=== PATIENT | female | born 1995 | race African-American/Black ===

== ENCOUNTER 2017-03-24 19:04 | Emergency (ER) | payer MEDICAID ==
[2017-03-24] MEDS ORDERED: SULFAMETHOXAZOLE/TRIMETHOPRIM 800-160 MG TABLET PO ONE (21:40)
[2017-03-24] MEDS ORDERED: HYDROCODONE/ACETAMINOPHEN 5-325 MG 6 TAB/DSPK PO PRN (21:41)
--- NOTE | 2017-03-24 21:45 | ER Document Report ---
ED General - General Chief Complaint: Possible abscess under both arms Stated Complaint: SWOLLEN UNDERARMS Time Seen by Provider: 03/24/17 20:31 Notes: Patient is a 21-year-old female with a past medical history of hidradenitis who presents with bilateral swelling and tenderness. States this feels similar to when she is developed abscesses in the axilla in the past. She has been told that she needs to have surgical removal of her sweat glands. Does note a dull, constant, aching pain to the affected area. Nothing improves or worsens her pain. She denies any fever or constitutional symptoms. She has not seen her primary doctor regarding today's concerns. TRAVEL OUTSIDE OF THE [place] IN LAST 30 DAYS: No - Related Data Allergies/Adverse Reactions: No Known Allergies Allergy (Unverified 03/24/17 19:29) Past Medical History - General Information source: Patient - Social History Smoking Status: Current Every Day Smoker Chew tobacco use (# tins/day): No Frequency of alcohol use: None Drug Abuse: None Lives with: Family Family History: Reviewed & Not Pertinent Pulmonary Medical History: Reports: Hx Asthma Renal/ Medical History: Denies: Hx Peritoneal Dialysis Review of Systems - Review of Systems Notes: Constitutional: Negative for fever. HENT: Negative for sore throat. Eyes: Negative for visual changes. Cardiovascular: Negative for chest pain. Respiratory: Negative for shortness of breath. Gastrointestinal: Negative for abdominal pain, vomiting or diarrhea. Genitourinary: Negative for dysuria. Musculoskeletal: Negative for back pain. Skin: Positive for bilateral axillary swelling Neurological: Negative for headaches, weakness or numbness. 10 point ROS negative except as marked above and in HPI. Physical Exam - Vital signs Vitals: Temp Pulse Resp BP Pulse Ox 98.6 F 98 16 123/54 L 99 03/24/17 19:28 03/24/17 19:28 03/24/17 19:28 03/24/17 19:28 03/24/17 19:28 Interpretation: Normal Notes: PHYSICAL EXAMINATION: GENERAL: Well-appearing, well-nourished and in no acute distress. HEAD: Atraumatic, normocephalic. EYES: Pupils equal round and reactive to light, extraocular movements intact, sclera anicteric, conjunctiva are normal. ENT: nares patent, oropharynx clear without exudates. Moist mucous membranes. NECK: Normal range of motion, supple without lymphadenopathy LUNGS: Breath sounds clear to auscultation bilaterally and equal. No wheezes rales or rhonchi. HEART: Regular rate and rhythm without murmurs ABDOMEN: Soft, nontender, normoactive bowel sounds. No guarding, no rebound. No masses appreciated. EXTREMITIES: Normal range of motion, no pitting or edema. No cyanosis. NEUROLOGICAL: No focal neurological deficits. Moves all extremities spontaneously and on command. PSYCH: Normal mood, normal affect. SKIN: Warm, Dry, normal turgor, bilateral axillary abscesses. Course - Re-evaluation Re-evalutation: 03/24/17 21:41 Patient with a history of hidradenitis presents with bilateral axillary swelling and associated abscesses with a history of recurrent presentations of this manner. She is otherwise well in appearance, vitals within normal limits, not toxic or septic in appearance. Patient is declining repeat incision and drainages stating that she has had these repeatedly in the past and they have not helped. She expresses an understanding that without incision and drainages , antibiotics alone are unlikely to be successful treatment of these areas but states she would rather follow-up as an outpatient with a surgeon for definitive management for removal of the sweat glands. Will start on TMP-SMX provide a limited number of pain medications and provide a outpatient surgical referral. At this time will discharge with return precautions and follow-up recommendations. Verbal discharge instructions given a the bedside and opportunity for questions given. Medication warnings reviewed. Patient is in agreement with this plan and has verbalized understanding of return precautions and the need for primary care follow-up in the next 24-72 hours. - Vital Signs Vital signs: Temp Pulse Resp BP Pulse Ox 98.3 F 62 16 121/65 100 03/24/17 22:03 03/24/17 22:03 03/24/17 22:03 03/24/17 22:03 03/24/17 22:03 Discharge - Discharge Clinical Impression: Hidradenitis, Cutaneous abscesses of both axillae Condition: Good Disposition: HOME, SELF-CARE Additional Instructions: Please clean this area with soap and water twice daily and apply a topical antibiotic. Dress the area after each cleaning. Please return if you develop fever, vomiting, the pain at the site worsens, you notice spreading redness from the area, or you have any other symptoms that are concerning to you. Take antibiotics as prescribed and follow-up with the surgeon at your earliest ability. Prescriptions: Sulfamethoxazole/Trimethoprim [Bactrim Ds Tablet] 2 tab PO BID #20 tablet Referrals: EMILIA RAGLAND MD [ACTIVE STAFF] - Follow up as needed
[2017-03-24 22:13] VITALS: BP 121/65
== END 2017-03-24 22:14 | disposition home or self-care (01) ==
LOC: ER 19:04
DX: L73.2 Hidradenitis suppurativa (principal); L02.412 Cutaneous abscess of left axilla; L02.411 Cutaneous abscess of right axilla; F17.200 Nicotine dependence, unspecified, uncomplicated; J45.909 Unspecified asthma, uncomplicated
CPT/HCPCS: 99282; J3490

== ENCOUNTER 2017-04-20 21:16 | Emergency (ER) | payer MEDICAID ==
[2017-04-20 22:15] VITALS: BP 135/66
--- NOTE | 2017-04-20 22:46 | ER Document Report ---
HPI - HPI Patient complains to provider of: Anxiety Onset: Other - Week and a half Onset/Duration: Intermittent, Persistent Pain Level: Denies Context: 21-year-old female with a history of bipolar normally takes Latuda 80 mg at night and 40 mg in the morning but she has been out of medication for a week and a half. During that time she has episodes of crying shaking. She is not suicidal. She does not have psychiatrist in this area and she wanted a referral. Associated Symptoms: None Exacerbated by: Denies Relieved by: Denies Similar symptoms previously: Yes Recently seen / treated by doctor: No - ROS ROS below otherwise negative: Yes Systems Reviewed and Negative: Yes All other systems reviewed and negative - DERM Skin Color: Normal Past Medical History - General Information source: Patient - Social History Smoking Status: Never Smoker Frequency of alcohol use: None Drug Abuse: None Lives with: Spouse/Significant other Family History: Reviewed & Not Pertinent Patient has suicidal ideation: No Patient has homicidal ideation: No Pulmonary Medical History: Reports: Hx Asthma Renal/ Medical History: Denies: Hx Peritoneal Dialysis Psychiatric Medical History: Reports: Hx Anxiety, Hx Bipolar Disorder Vertical Provider Document - CONSTITUTIONAL Agree With Documented VS: Yes Exam Limitations: No Limitations General Appearance: No Apparent Distress - INFECTION CONTROL TRAVEL OUTSIDE OF THE [place] IN LAST 30 DAYS: No - HEENT HEENT: Normal ENT Exam - NECK Neck: Supple - RESPIRATORY Respiratory: Breath Sounds Normal, No Respiratory Distress O2 Sat by Pulse Oximetry: 100 - CARDIOVASCULAR Cardiovascular: Regular Rate, Regular Rhythm - GI/ABDOMEN Gastrointestinal: Abdomen Soft, Abdomen Non-Tender - MUSCULOSKELETAL/EXTREMETIES Musculoskeletal/Extremeties: MAEW, FROM - NEURO Level of Consciousness: Awake, Alert, Agitated - mild - DERM Integumentary: Warm, Dry, No Rash Course - Vital Signs Vital signs: Temp Pulse Resp BP Pulse Ox 99.2 F 108 H 24 H 135/66 H 100 04/20/17 21:28 04/20/17 21:28 04/20/17 21:28 04/20/17 21:28 04/20/17 21:28 Discharge - Discharge Clinical Impression: anxiety, bipolar without medication Condition: Good Disposition: HOME, SELF-CARE Instructions: Anxiety (OM) Additional Instructions: see the local psychiatrist for Latuda prescription to er if any concerns you can take the hydoxyzine for anxiety until you see the psych doctor [facility] * Address: [address] [place] [address] [address], [place] [address] [facility] [address] [facility] Shanta Roy Please complete the patient satisfaction survey if you get one, and return it.. If you do not receive a survey, then you can go to the [facility] website, [email or web address] and place your comments about your very good care. Thank you very much. It was a pleasure being your medical provider today. Prescriptions: Hydroxyzine HCl 50 mg PO Q6HP PRN #30 tablet PRN Reason: Anxiety
[2017-04-20] MEDS ORDERED: IBUPROFEN 800 MG TABLET PO ONE (22:52)
[2017-04-20] MEDS ORDERED: HYDROXYZINE PAMOATE 50 MG CAPSULE PO ONE (23:03)
== END 2017-04-20 23:17 | disposition home or self-care (01) ==
LOC: ER 21:16
DX: F41.9 Anxiety disorder, unspecified (principal); F31.9 Bipolar disorder, unspecified; Z91.14 Patient's other noncompliance with medication regimen
CPT/HCPCS: 99283; J3490

== ENCOUNTER 2017-06-02 12:19 | Emergency (ER) | payer MEDICAID ==
[2017-06-02] MEDS ORDERED: IPRATROPIUM/ALBUTEROL 0.5-2.5 MG/3 ML AMPUL NEB ONE (13:25)
[2017-06-02] MEDS ORDERED: PREDNISONE 20 MG TABLET PO ONE (13:25)
--- NOTE | 2017-06-02 13:31 | ER Document Report ---
ED Respiratory Problem - General Chief Complaint: Cough Stated Complaint: COUGH Time Seen by Provider: 06/02/17 13:09 Mode of Arrival: Ambulatory Information source: Patient Notes: 21-year-old female presents to ED for cough congestion 3 days with shortness of breath and sore throat. She states she has a history of asthma and is been having a hard time breathing at times especially at night. She denies any fevers. She is able to speak in full sentences but does cough throughout. TRAVEL OUTSIDE OF THE [place] IN LAST 30 DAYS: No - HPI Patient complains to provider of: Asthma, Cough Onset: Other - 3 days Initiating Event: URI Quality of pain: Achy Severity: Moderate Pain Level: 3 Context: Hx asthma, Smoker - Quit smoking 2 weeks ago Short of Breath: Mild Cough: Nonproductive Sputum amount: None At home treatment: Bronchodilators Associated symptoms: Chest pain/discomfort, Congestion, Cough, PND, Runny nose, Sore Throat. denies: Fever Similar symptoms previously: Yes Recently seen / treated by doctor: No - Related Data Allergies/Adverse Reactions: No Known Allergies Allergy (Unverified 04/20/17 21:27) Past Medical History - General Information source: Patient - Social History Smoking Status: Former Smoker - Patient quit smoking 2 weeks ago Cigarette use (# per day): No Chew tobacco use (# tins/day): No Smoking Education Provided: No Frequency of alcohol use: None Drug Abuse: None Occupation: [employer] Lives with: Friend Family History: CAD, Hyperlipidemia, Hypertension. denies: Arthritis, COPD, CVA , DM, Malignancy, Thyroid Disfunction Patient has suicidal ideation: No Patient has homicidal ideation: No - Past Medical History Cardiac Medical History: Reports: None Pulmonary Medical History: Reports: Hx Asthma, Hx Bronchitis EENT Medical History: Reports: None Neurological Medical History: Reports: None Endocrine Medical History: Reports: None Renal/ Medical History: Reports: None Malignancy Medical History: Reports: None GI Medical History: Reports: None Musculoskeltal Medical History: Reports None Skin Medical History: Reports None Psychiatric Medical History: Reports: Hx Anxiety, Hx Bipolar Disorder Traumatic Medical History: Reports: None Infectious Medical History: Reports: None Surgical Hx: Negative Past Surgical History: Reports: None Review of Systems - Review of Systems Constitutional: Recent illness EENT: Nose discharge, Sinus discharge, Throat pain Cardiovascular: No symptoms reported Respiratory: Cough, Short of breath Gastrointestinal: No symptoms reported Genitourinary: No symptoms reported Female Genitourinary: No symptoms reported Musculoskeletal: No symptoms reported Skin: No symptoms reported Hematologic/Lymphatic: No symptoms reported Neurological/Psychological: No symptoms reported -: Yes All other systems reviewed and negative Physical Exam - Vital signs Vitals: Temp Pulse Resp BP Pulse Ox 97.8 F 85 16 121/68 99 06/02/17 12:40 06/02/17 12:40 06/02/17 12:40 06/02/17 12:40 06/02/17 12:40 Interpretation: Normal - General General appearance: Appears well, Alert - HEENT Head: Normocephalic, Atraumatic Eyes: Normal Pupils: PERRL Ears: Normal External canal: Normal Tympanic membrane: Normal Sinus: Normal Nasal: Purulent discharge, Swelling Mouth/Lips: Normal Mucous membranes: Normal Pharynx: Post nasal drainage Neck: Normal - Respiratory Respiratory status: No respiratory distress Chest status: Nontender Breath sounds: Decreased air movement, Nonproductive cough, Wheezing Chest palpation: Normal - Cardiovascular Rhythm: Regular Heart sounds: Normal auscultation Murmur: No - Abdominal Inspection: Normal Distension: No distension Bowel sounds: Normal Tenderness: Nontender Organomegaly: No organomegaly - Back Back: Normal, Nontender - Extremities General upper extremity: Normal inspection, Nontender, Normal color, Normal ROM , Normal temperature General lower extremity: Normal inspection, Nontender, Normal color, Normal ROM , Normal temperature, Normal weight bearing. No: Jasson's sign - Neurological Neuro grossly intact: Yes Cognition: Normal Orientation: AAOx4 Terrell Coma Scale Eye Opening: Spontaneous Terrell Coma Scale Verbal: Oriented Terrell Coma Scale Motor: Obeys Commands Mely Coma Scale Total: 15 Speech: Normal Motor strength normal: LUE, RUE, LLE, RLE Sensory: Normal - Psychological Associated symptoms: Normal affect, Normal mood - Skin Skin Temperature: Warm Skin Moisture: Dry Skin Color: Normal Course - Re-evaluation Re-evalutation: 06/02/17 15:09 Patient was treated with duo nebs and albuterol as well as prednisone for her very diminished breath sounds. She has a history of asthma and I think it is been exacerbated from her cold. I have sent her home with prescriptions for prednisone and albuterol and for her to take tomorrow off from work. She is to follow-up with her primary doctor. She is to use her prednisone and albuterol as she has been instructed. I have also instructed to increase her fluids. She states she has not been hungry for a while but now that she has had the prednisone and the nebs and is able to breathe better she is now hungry. I told her to go and get something to eat as soon as she was discharged. - Vital Signs Vital signs: Temp Pulse Resp BP Pulse Ox 97.8 F 85 16 121/68 99 06/02/17 12:40 06/02/17 12:40 06/02/17 12:40 06/02/17 12:40 06/02/17 12:40 - Diagnostic Test Radiology reviewed: Image reviewed, Reports reviewed Discharge - Discharge Clinical Impression: URI (upper respiratory infection) Qualifiers: URI type: unspecified URI Qualified Code(s): J06.9 - Acute upper respiratory infection, unspecified Asthma exacerbation Qualifiers: Asthma severity: mild Asthma persistence: unspecified Qualified Code(s): J45.901 - Unspecified asthma with (acute) exacerbation Condition: Stable Disposition: HOME, SELF-CARE Instructions: Family Physicians / Practices Additional Instructions: ASTHMA: You have been diagnosed as having asthma. This is a condition where there is episodic tightness in the bronchial tubes. Allergies, infections, and polluted or cold air may be contributing factors. Emergency treatment of a severe asthma attack may include adrenaline shots , or bronchodilator aerosol. You may feel lightheaded, have a decreased exercise tolerance and a rapid pulse for an hour or two. Rest and get plenty of fluids. Home treatment of asthma requires bronchodilator drugs. These can be administered by injection, inhalation, or by mouth. Antibiotics and corticosteroids may be required for some patients. You should avoid chemical fumes, dusts, pollens, and exercising in very cold or dry air. If you smoke, stop!! If you develop a fever, increased wheezing, chest pain, or severe shortness of breath, you should contact the doctor immediately. UPPER RESPIRATORY ILLNESS: You have a viral infection of the respiratory passages -- a "cold." This common infection causes nasal congestion, drainage, and often sore throat and cough. It is highly contagious. The disease usually lasts about 10 to 14 days. There is no "cure" for the viral infection -- it must run its course. If there is a complication, such as bacterial infection in the nose, sinuses, middle ear, or bronchial tubes, antibiotics may be required. The antibiotics won't affect the virus. Drink plenty of fluids. A humidifier may help. An expectorant medication or decongestant may make you more comfortable. Use acetaminophen or ibuprofen for fever or aches. See the doctor if fever persists over two days, if there is any significant worsening of your symptoms, or if you simply fail to improve as expected. STEROID MEDICATION: You have been given an injection of or oral medicine of the cortisone/ steroid class. This medication is used to control inflammation or allergy. Momo t is usually only given for a short period of time, until the acute process subsides. There are usually no side effects from short-term use of cortisone-like medications. Some persons feel an increased sense of well-being and are not sleepy at bedtime. Long-term use of cortisone medications is best avoided, unless required for a severe condition. If your condition does not remit, or relapses after the course of corticosteroid medication, you should consult your physician. INHALED BRONCHODILATORS: You have received treatment(s) of and/or prescription for an inhaled bronchodilator -- a medication which stimulates the airways in the lung to dilate. This improves the flow of air in asthma, bronchitis, and emphysema. These medicines have some similarity to adrenaline, and can cause similar side effects: shakiness, racing heart, and a sense of nervousness. These side effects decrease with time. Contact your doctor if these side effects are severe. Do not over-use the medicine. Too-frequent use of the inhaler may make it ineffective. Call your doctor if the inhaler is not controlling your symptoms at the prescribed doses. USE OF ACETAMINOPHEN (Tylenol): Acetaminophen may be taken for pain relief or fever control. It's much safer than aspirin, offering a wider range of "safe" dosages. It is safe during . Some brand names are Tylenol, Panadol, Datril, Anacin 3, Tempra, and Liquiprin. Acetaminophen can be repeated every four hours. The following are maximum recommended dosages: WEIGHT Dose Drops Elixir Chewable( 80mg) (LBS.) drprs=droppers tsp=teaspoon 6 40 mg 0.4 ml (1/2) 6-11 80 mg 0.8 ml (full) tsp 1 tab 12-16 120 mg 1 1/2 drprs 3/4 tsp 1 1/2 tabs 17-23 160 mg 2 drprs 1 tsp 2 tabs 24-30 240 mg 3 drprs 1 1/2 tsp 3 tabs 30-35 320 mg 2 tsp 4 tabs 36-41 360 mg 2 1/4 tsp 4 1/2 tabs 42-47 400 mg 2 1/2 tsp 5 tabs 48-53 480 mg 3 tsp 6 tabs 54-59 520 mg 3 1/4 tsp 6 1/2 tabs 60-64 560 mg 3 1/2 tsp 7 tabs 65-70 600 mg 3 3/4 tsp 7 1/2 tabs 71-76 640 mg 4 tsp 8 tabs 77-82 720 mg 4 1/2 tsp 9 tabs 83-88 800 mg 5 tsp 10 tabs >89 pounds or adults 650 mg to 900 mg Acetaminophen can be repeated every four hours. Maximum dose not to exceed 4000 mg a day. These maximum recommended dosages are slightly higher than the dosages written on the product container, but these dosages are very safe and below the toxic dosage for acetaminophen. FOLLOW-UP CARE: If you have been referred to a physician for follow-up care, call the physician s office for an appointment as you were instructed or within the next two days. If you experience worsening or a significant change in your symptoms, notify the physician immediately or return to the Emergency Department at any time for re-evaluation. Prescriptions: Albuterol Sulfate [Proair HFA Inhalation Aerosol 8.5 gm MDI] 2 puff IH Q4H PRN # 1 mdi PRN Reason: Prednisone [Sterapred Ds] 1 pkg PO ASDIR PRN 12 Days tab.[id number].pk PRN Reason: Forms: Return to Work
[2017-06-02] MEDS: ALBUTEROL SULFATE 0.083% NEB 2.5 MG/3 ML AMPUL NEB SCH ×3 (13:41→14:25)
--- NOTE | 2017-06-02 13:59 | RADIOLOGY REPORT (SQ) ---
EXAM DESCRIPTION: CHEST PA/LAT COMPLETED DATE/TIME: 06/02/2017 1:42 pm REASON FOR STUDY: cough congestion COMPARISON: None. EXAM PARAMETERS: NUMBER OF VIEWS: two views TECHNIQUE: Digital Frontal and Lateral radiographic views of the chest acquired. RADIATION DOSE: NA LIMITATIONS: none FINDINGS: LUNGS AND PLEURA: No opacities, masses or pneumothorax. No pleural effusion. MEDIASTINUM AND HILAR STRUCTURES: No masses or contour abnormalities. HEART AND VASCULAR STRUCTURES: Heart normal size. No evidence for failure. BONES: No acute findings. HARDWARE: None in the chest. OTHER: No other significant finding. IMPRESSION: NO SIGNIFICANT RADIOGRAPHIC FINDING IN THE CHEST. TECHNICAL DOCUMENTATION: JOB ID: [id number] [employer]- All Rights Reserved
[2017-06-02 15:34] VITALS: BP 122/68
== END 2017-06-02 15:19 | disposition home or self-care (01) ==
LOC: ER 12:19
DX: J00 Acute nasopharyngitis [common cold] (principal); J45.901 Unspecified asthma with (acute) exacerbation; R05 Cough; R06.02 Shortness of breath; R07.9 Chest pain, unspecified; R09.82 Postnasal drip; Z87.891 Personal history of nicotine dependence
CPT/HCPCS: 94640 ×2; 99283; 71020; J7512; J7620

== ENCOUNTER 2017-06-25 14:15 | Emergency (ER) | payer MEDICAID ==
[2017-06-25] MEDS ORDERED: LIDOCAINE 4%/TETRACAINE 0.5%/EPI 0.18% 5 ML TOPICAL SOLN TOP ONE (15:04)
[2017-06-25] MEDS ORDERED: ACETAMINOPHEN 325 MG TABLET PO ONE (15:05)
[2017-06-25] MEDS ORDERED: DOXYCYCLINE HYCLATE 100 MG TABLET PO ONE (15:05)
--- NOTE | 2017-06-25 15:06 | ER Document Report ---
HPI - HPI Patient complains to provider of: Exacerbation of hidradenitis supperativa Onset: Other - several day Pain Level: 5 Context: 21-year-old female with a history of hidradenitis suppurativa is complaining of increased sensitivity pain and drainage from both of her axilla. The right drain several days ago but is still swollen. The left one is presently draining. She is seen a general surgery practice here who recommended Septra antibiotics last month and no surgery. No fever or chills. Associated Symptoms: None Exacerbated by: Movement Relieved by: Denies Similar symptoms previously: No Recently seen / treated by doctor: No - ROS ROS below otherwise negative: Yes Systems Reviewed and Negative: Yes All other systems reviewed and negative Past Medical History - General Information source: Patient - Social History Smoking Status: Unknown if Ever Smoked Frequency of alcohol use: None Drug Abuse: None Lives with: Spouse/Significant other Family History: CAD, Hyperlipidemia, Hypertension Pulmonary Medical History: Reports: Hx Asthma, Hx Bronchitis Renal/ Medical History: Denies: Hx Peritoneal Dialysis Psychiatric Medical History: Reports: Hx Anxiety, Hx Bipolar Disorder Surgical Hx: Negative Vertical Provider Document - CONSTITUTIONAL Agree With Documented VS: Yes Exam Limitations: No Limitations - INFECTION CONTROL TRAVEL OUTSIDE OF THE [place] IN LAST 30 DAYS: No - HEENT HEENT: Normocephalic - NECK Neck: Supple - RESPIRATORY O2 Sat by Pulse Oximetry: 100 - MUSCULOSKELETAL/EXTREMETIES Musculoskeletal/Extremeties: MAEW, FROM, Tender - bilateral axilla - NEURO Level of Consciousness: Awake, Alert - DERM Integumentary: Warm, Dry, Abscess - draining lesion left axilla, 2 indurated areas right axilla, inflammation, no pus Course - Vital Signs Vital signs: Temp Pulse Resp BP Pulse Ox 98.7 F 100 18 122/63 100 06/25/17 14:19 06/25/17 14:19 06/25/17 14:19 06/25/17 14:19 06/25/17 14:19 Discharge - Discharge Clinical Impression: Hidradenitis suppurativa Condition: Good Disposition: HOME, SELF-CARE Instructions: Abscess ([facility]), Bactroban Ointment ([facility]), Doxycycline ([facility]), Steroid Medication, Warm Packs ([facility]) Additional Instructions: lidocaine cream to decrease pain before you wash with the antibacterial soap daily bactroban ointment doxycycline motrin tylenol to er if worse referral to general surgery again Please complete the patient satisfaction survey if you get one, and return it.. If you do not receive a survey, then you can go to the [facility] website, [email or web address] and place your comments about your very good care. Thank you very much. It was a pleasure being your medical provider today. Prescriptions: Ibuprofen [Motrin 800 mg Tablet] 800 mg PO Q8HP PRN #30 tablet PRN Reason: Doxycycline Hyclate 100 mg PO BID #20 capsule Lidocaine [Lidovex] 1 applic TP DAILY #60 cream..g. Mupirocin [Bactroban 2% Ointment 22 gm] 1 applic TP TID #22 gm Forms: Return to Work
[2017-06-25] MEDS ORDERED: DEXAMETHASONE 4 MG TABLET PO ONE (15:18)
[2017-06-25] MEDS ORDERED: MUPIROCIN 2% OINTMENT 22 GM TP ONE (16:08)
[2017-06-25 16:32] VITALS: BP 114/51
== END 2017-06-25 16:32 | disposition home or self-care (01) ==
LOC: ER 14:15
DX: L73.2 Hidradenitis suppurativa (principal)
CPT/HCPCS: 99282; J3490 ×5

== ENCOUNTER 2017-08-01 22:32 | Emergency (ER) | payer MEDICAID ==
[2017-08-01] MEDS ORDERED: ACETAMINOPHEN 325 MG TABLET PO ONE (23:59)
[2017-08-01] MEDS ORDERED: LIDOCAINE 5% (700 MG) TRANSDERMAL ADH..PATCH TP ONE (23:59)
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
--- NOTE | 2017-08-02 00:50 | RADIOLOGY REPORT (SQ) ---
EXAM DESCRIPTION: CHEST PA/LAT CLINICAL HISTORY: left rib pain, trauma COMPARISON: 06/02/2017 FINDINGS: Frontal and lateral views of the chest. The cardiomediastinal silhouette has normal size and contour. No consolidation, pneumothorax, or pleural effusion. No displaced rib fractures identified. Upper abdominal soft tissues are unremarkable. IMPRESSION: 1. No acute pulmonary process identified.
[2017-08-02 01:25] VITALS: BP 115/66
== END 2017-08-02 01:22 | disposition home or self-care (01) ==
LOC: ER 22:32
DX: R07.81 Pleurodynia (principal); F17.200 Nicotine dependence, unspecified, uncomplicated; Y04.8XXA Assault by other bodily force, initial encounter
CPT/HCPCS: 99284; 71020; J3490 ×2

== ENCOUNTER 2017-10-19 22:45 | Inpatient (IN) | payer MEDICAID ==
[2017-10-20] MEDS ORDERED: OXYCODONE-ACETAMINOPHEN 5-325 MG TABLET PO ONE ×2 (02:07→05:02)
[2017-10-20] MEDS ORDERED: CLINDAMYCIN 600 MG/D5W RTU 600 MG/50 ML RTUPB IV ONE (02:09)
[2017-10-20] MEDS ORDERED: KETOROLAC TROMETHAMINE INJ/PF 30 MG/1 ML SDV IV ONE (02:09)
--- NOTE | 2017-10-20 02:11 | ER Document Report ---
ED Breast Problem <JESSICA GARRIDO - Last Filed: 10/20/17 09:31> - General Mode of Arrival: Ambulatory Information source: Patient Notes: Patient complains of left breast pain with drainage. Patient states she has had a history of abscess to the left breast last year that required surgical drainage. Patient denies any fever. Patient does report a history of hidradenitis and complains of bilateral axillary skin lesions. TRAVEL OUTSIDE OF THE [place] IN LAST 30 DAYS: No - HPI Patient complains to provider of: Drainage, Swelling, Tenderness Onset/Duration: Worse Quality of pain: Sharp Pain Level: 4 Associated Symptoms: Other - Left breast pain. denies: Fever Similar symptoms previously: Yes Recently seen / treated by doctor: No <MORGAN LONGORIA - Last Filed: 10/21/17 07:21> - General Chief Complaint: Breast Problem Stated Complaint: PAIN IN AREOLA Time Seen by Provider: 10/20/17 01:54 - Related Data Allergies/Adverse Reactions: No Known Allergies Allergy (Verified 08/01/17 22:33) Past Medical History - General Information source: Patient - Social History Smoking Status: Current Every Day Smoker Frequency of alcohol use: None Drug Abuse: None Occupation: None Lives with: Family Family History: CAD, Hyperlipidemia, Hypertension Pulmonary Medical History: Reports: Hx Asthma, Hx Bronchitis Renal/ Medical History: Denies: Hx Peritoneal Dialysis Psychiatric Medical History: Reports: Hx Anxiety, Hx Bipolar Disorder Infectious Medical History: Reports: Other - Hidradenitis Past Surgical History: Reports: Hx Breast Surgery - Abscess surgical drainage <MORGAN LONGORIA - Last Filed: 10/21/17 07:21> Review of Systems - Review of Systems Constitutional: No symptoms reported EENT: No symptoms reported Cardiovascular: No symptoms reported Respiratory: No symptoms reported Gastrointestinal: No symptoms reported Female Genitourinary: No symptoms reported Musculoskeletal: No symptoms reported Skin: Lumps - Lateral axilla, Other - Drainage from left breast Hematologic/Lymphatic: No symptoms reported Neurological/Psychological: No symptoms reported <MORGAN LONGORIA - Last Filed: 10/21/17 07:21> Physical Exam - Vital signs Vitals: Temp Pulse Resp BP Pulse Ox 99.0 F 104 H 20 127/70 H 97 10/19/17 22:53 10/19/17 22:53 10/19/17 22:53 10/19/17 22:53 10/19/17 22:53 <JESSICA GARRIDO - Last Filed: 10/20/17 09:31> - Vital signs Vitals: Temp Pulse Resp BP Pulse Ox 99.0 F 104 H 20 127/70 H 97 10/19/17 22:53 10/19/17 22:53 10/19/17 22:53 10/19/17 22:53 10/19/17 22:53 - General General appearance: Appears well, Alert In distress: None - HEENT Head: Normocephalic Eyes: Normal Nasal: Normal Mouth/Lips: Normal Mucous membranes: Normal Neck: Normal, Supple. No: Lymphadenopathy - Respiratory Respiratory status: No respiratory distress Chest status: Nontender Breath sounds: Normal. No: Rales, Rhonchi, Stridor, Wheezing Chest palpation: Normal - Cardiovascular Rhythm: Regular Heart sounds: S1 appreciated, S2 appreciated Murmur: No - Back Back: Normal - Extremities General upper extremity: Normal inspection, Normal strength General lower extremity: Normal inspection, Normal strength - Neurological Neuro grossly intact: Yes Cognition: Normal [place] Coma Scale Eye Opening: Spontaneous [place] Coma Scale Verbal: Oriented [place] Coma Scale Motor: Obeys Commands [place] Coma Scale Total: 15 - Psychological Associated symptoms: Normal affect, Normal mood - Skin Skin Temperature: Warm Skin Moisture: Dry Skin irregularity: Tender indurated area - Bilateral axilla with tender indurated skin lesion, other - Patient with purulent drainage spontaneously draining from left breast at 3 o'clock position adjacent to areola <MORGAN LONGORIA - Last Filed: 10/21/17 07:21> Course - Vital Signs Vital signs: Temp Pulse Resp BP Pulse Ox 97.7 F 56 L 16 112/70 100 10/20/17 09:12 10/20/17 09:12 10/20/17 09:12 10/20/17 09:12 10/20/17 09:12 - Laboratory Result Diagrams: 10/20/17 03:34 Laboratory results interpreted by me: 10/20/17 03:34 WBC 10.9 H <JESSICA GARRIDO - Last Filed: 10/20/17 09:31> - Re-evaluation Re-evalutation: 10/20/17 02:[address] Scmhidt who advises u/s imaging of breast prior to surgical consultation 10/20/17 04:26 will plan surgical consultation closer to 6 AM. Patient updated regarding plan of care at this time. Patient stable, no concern for sepsis at this time. 10/20/17 06:[address] Merlos who agrees to come and evaluate patient. Recommends starting vancomycin and Zosyn IV. 10/20/17 07:14 Bedside report and handout given to Emma Reyna [employer]ERIALS DEVELOPMENT ENGINEER - Vital Signs Vital signs: Temp Pulse Resp BP Pulse Ox 99.1 F 89 18 130/81 H 98 10/20/17 00:56 10/20/17 00:56 10/20/17 00:56 10/20/17 00:56 10/20/17 00:56 - Laboratory Result Diagrams: 10/20/17 03:34 10/21/17 06:54 Laboratory results interpreted by me: 10/20/17 06:03 Labs- Entire Visit 10/20/17 03:34 WBC 10.9 H RBC 4.76 Hgb 13.5 Hct 41.0 MCV 86 MCH 28.3 MCHC 32.9 RDW 13.9 Plt Count 273 Seg Neutrophils % 66.0 Lymphocytes % 26.4 Monocytes % 6.4 Eosinophils % 0.8 Basophils % 0.4 Absolute Neutrophils 7.2 Absolute Lymphocytes 2.9 Absolute Monocytes 0.7 Absolute Eosinophils 0.1 Absolute Basophils 0.0 - Diagnostic Test Radiology reviewed: Reports reviewed <MORGAN LONGORIA - Last Filed: 10/21/17 07:21> Discharge - Discharge Admitting Provider: Surgicalist Unit Admitted: Post <JESSICA GARRIDO - Last Filed: 10/20/17 09:31> <MORGAN LONGORIA - Last Filed: 10/21/17 07:21> - Discharge Clinical Impression: Breast abscess, Axillary hidradenitis suppurativa Condition: Good Disposition: ADMITTED INPATIENT
--- NOTE | 2017-10-20 03:00 | RADIOLOGY REPORT (SQ) ---
EXAM DESCRIPTION: U/S BREAST UNILATERAL LIMITED CLINICAL HISTORY: 21 years, Female, eval for abscess, +purulent drainage COMPARISON: None. LIMITATIONS: None. FINDINGS: Targeted sonogram at 3:00 position of the right breast 1 cm from the nipple in an area of symptomatology demonstrates a 2.5 x 0.5 x 1.1 cm hypoechoic heterogenous lesion with vascularity demonstrated on color Doppler sonogram. No drainable abscess. IMPRESSION: 2.5 cm lesion in the right breast, 1 cm from the nipple corresponds with palpable abnormality. Different diagnosis includes malignancy. Diagnostic bilateral mammogram warranted within 30 days. US BI-RAD: 0 Additional Imaging Needed.
[2017-10-20] MEDS ORDERED: NORMAL SALINE 1000 ML 1,000 ML IV ONE (03:44)
[2017-10-20 03:45] LABS: ABSOLUTE EOSINOPHILS # (AUTO) 0.1 10^3/uL (0.0-0.6); ABSOLUTE LYMPHOCYTES (AUTO) 2.9 10^3/uL (0.5-4.7); ABSOLUTE MONOCYTES (AUTO) 0.7 10^3/uL (0.1-1.4); ABSOLUTE NEUT (AUTO) 7.2 10^3/uL (1.7-8.2); BASOPHILS % (AUTO) 0.4 % (0-2); EOSINOPHILS % (AUTO) 0.8 % (0-6); HEMOGLOBIN 13.5 g/dL (12.0-15.5); LYMPHOCYTES % (AUTO) 26.4 % (13-45); MEAN CORPUSCULAR HEMOGLOBIN 28.3 pg (27.0-33.4); MEAN CORPUSCULAR HGB CONC 32.9 g/dL (32.0-36.0); MEAN CORPUSCULAR VOLUME 86 fl (80-97); MONOCYTES % (AUTO) 6.4 % (3-13); PLATELET COUNT 273 10^3/uL (150-450); RED BLOOD COUNT 4.76 10^6/uL (3.72-5.28); RED CELL DISTRIBUTION WIDTH 13.9 % (11.5-14.0); TOTAL CELLS COUNTED % (AUTO) 100 %; WHITE BLOOD COUNT 10.9 10^3/uL (4.0-10.5)
[2017-10-20] MEDS ORDERED: NICOTINE 21 MG/24 HR PATCH.TD24 TD ONE (05:02)
[2017-10-20] MEDS ORDERED: PIPERACILLIN/TAZOBACTAM 3.375 GM VIAL IV ONE ×2 (05:59→12:28)
[2017-10-20] MEDS ORDERED: VANCOMYCIN HCL INJ 1000 MG VIAL IV ONE (06:02)
--- NOTE | 2017-10-20 07:32 | PDOC H&P ---
History of Present Illness Admission Date/PCP: 10/20/17 History of Present Illness: CITLALLI BORREGO is a 21 year old female with a hx of draining site in the left breast and right axilla as per hydroadenitis. She reports previous episodes of surgical drainage of right or left axillas and left breast abscesses. Past Medical History Pulmonary Medical History: Reports: Asthma, Bronchitis Psychiatric Medical History: Reports: Bipolar Disorder Past Surgical History Past Surgical History: Reports: Other - drainage of right and left breast axillart abscesses and left breast absces Social History Lives with: Family Smoking Status: Current Every Day Smoker Frequency of Alcohol Use: Rare Hx Recreational Drug Use: No Family History Family History: CAD, Hyperlipidemia, Hypertension Parental Family History Reviewed: No Children Family History Reviewed: No Sibling(s) Family History Reviewed.: No Medication/Allergy Home Medications: Sulfamethoxazole/Trimethoprim [Bactrim Ds Tablet] 2 tab PO BID #20 tablet Hydroxyzine HCl 50 mg PO Q6HP PRN #30 tablet 04/20/17 Albuterol Sulfate [Proair HFA Inhalation Aerosol 8.5 gm MDI] 2 puff IH Q4H PRN # 1 mdi 06/02/17 Prednisone [Sterapred Ds] 1 pkg PO ASDIR PRN 12 Days tab.ds.pk 06/02/17 Doxycycline Hyclate 100 mg PO BID #20 capsule 06/25/17 Ibuprofen [Motrin 800 mg Tablet] 800 mg PO Q8HP PRN #30 tablet 06/25/17 Lidocaine [Lidovex] 1 applic TP DAILY #60 cream..g. 06/25/17 Mupirocin [Bactroban 2% Ointment 22 gm] 1 applic TP TID #22 gm 06/25/17 Allergies/Adverse Reactions: No Known Allergies Allergy (Verified 08/01/17 22:33) Physical Exam Vital Signs: Temp Pulse Resp BP Pulse Ox 98.1 F 65 18 119/75 100 10/20/17 04:44 10/20/17 04:44 10/20/17 04:44 10/20/17 04:44 10/20/17 04:44 Intake & Output 10/19/17 10/20/17 10/21/17 06:59 06:59 06:59 Weight 86.3 kg General appearance: PRESENT: no acute distress Mouth exam: PRESENT: moist Neck exam: PRESENT: full ROM Respiratory exam: PRESENT: clear to auscultation pritesh Cardiovascular exam: PRESENT: RRR GI/Abdominal exam: PRESENT: soft Rectal exam: PRESENT: deferred Extremities exam: PRESENT: full ROM Skin exam: PRESENT: other - Left breast abscess deraining at 2:00 o'clock, right axilla draining abscess Results Laboratory Results: 10/20/17 03:34 10/20/17 03:34 WBC 10.9 H RBC 4.76 Hgb 13.5 Hct 41.0 MCV 86 MCH 28.3 MCHC 32.9 RDW 13.9 Plt Count 273 Seg Neutrophils % 66.0 Lymphocytes % 26.4 Monocytes % 6.4 Eosinophils % 0.8 Basophils % 0.4 Absolute Neutrophils 7.2 Absolute Lymphocytes 2.9 Absolute Monocytes 0.7 Absolute Eosinophils 0.1 Absolute Basophils 0.0 Assessment & Plan - Diagnosis (1) Breast abscess of female Is this a current diagnosis for this admission?: Yes (2) Axillary hidradenitis suppurativa Is this a current diagnosis for this admission?: Yes - Plan Summary Plan Summary: A/ Left breast abscess Right aillary suppurative hydroadenitis Patient had solid food by mouth @4:00 AM P/ Plan I&D of Left breast abscess Right aillary suppurative hydroadenitis in the OR Discharge to home afterward Obtain consent PRESTON LEVY
[2017-10-20] MEDS: NORMAL SALINE 1000 ML 1,000 ML IV PRN ×2 (08:40→23:08)
[2017-10-20] MEDS ORDERED: FENTANYL CITRATE INJ/PF 100 MCG/2 ML AMPUL ONE ×4 (11:14→14:44)
[2017-10-20] MEDS ORDERED: MIDAZOLAM 2 MG/2 ML INJ ONE (11:14)
[2017-10-20] MEDS ORDERED: DEXAMETHASONE SOD PHOSPHATE INJ 4 MG/1 ML VIAL ONE (11:15)
[2017-10-20] MEDS ORDERED: ACETAMINOPHEN 100 ML IV ONE (11:15)
[2017-10-20] MEDS ORDERED: ONDANSETRON HCL INJ/PF 4 MG/2 ML SDV ONE (11:15)
[2017-10-20] MEDS ORDERED: PROPOFOL INJ 200 MG/20 ML VIAL IV ONE (11:15)
[2017-10-20] MEDS ORDERED: ALBUTEROL SULFATE 0.083% NEB 2.5 MG/3 ML AMPUL NEB ONE ×2 (11:23→11:27)
[2017-10-20] MEDS ORDERED: BUPIVACAINE HCL 0.5%-EPI 1:200000 INJ/PF 30 ML VIAL ONE (11:36)
[2017-10-20] MEDS ORDERED: DIPHENHYDRAMINE HCL 50 MG/ML VIAL IV PRN (12:10)
[2017-10-20] MEDS ORDERED: MEPERIDINE HCL/PF INJ 25 MG/1 ML DISP.SYRIN IV PRN (12:10)
[2017-10-20] MEDS ORDERED: FENTANYL CITRATE INJ/PF 100 MCG/2 ML AMPUL IV PRN ×3 (12:10)
[2017-10-20] MEDS ORDERED: PROMETHAZINE HCL INJ 25 MG/1 ML VIAL IV PRN ×2 (12:10)
[2017-10-20] MEDS ORDERED: BACITRACIN ZINC OINTMENT 15 GM ONE ×2 (12:16→12:35)
--- NOTE | 2017-10-20 13:06 | Operative Report ---
Nonrecallable Operative Report DATE OF SURGERY: 10/20/17 PREOPERATIVE DIAGNOSIS: left breast abscess. recurrent, chronic right axillary hydroadenitis suppurativa POSTOPERATIVE DIAGNOSIS: same OPERATION: 1) I&D LEFT BREAST ABSCESS. 2) Full thickness sharp debriment of left axillary chronic recurrent hydroadenitis suppurative 8x12 cm SURGEON: MARYAM RODRIGUEZ ANESTHESIA: GA - plus 30 mL 0.5% marcaine with epinephrine TISSUE REMOVED OR ALTERED: right axilla recurrent, chronic, hydroadenitis suppurativa COMPLICATIONS: none ESTIMATED BLOOD LOSS: 20 mL INTRAOPERATIVE FINDINGS: 1) Right breast abscess @ 4 Pm located at the areola- skin area. 2) Right axilla skin with feature of recurrent, chronic hydroadenitis suppurativa with drainage and inflammation
[2017-10-20] MEDS ORDERED: PIPERACILLIN SODIUM/TAZOBACTAM 3.375 GM in NORMAL SALINE 100 ML IV ONE (13:15)
[2017-10-20] MEDS ORDERED: ACETAMINOPHEN 325 MG TABLET PO PRN (13:24)
[2017-10-20] MEDS ORDERED: ONDANSETRON HCL INJ/PF 4 MG/2 ML SDV IV PRN (13:24)
[2017-10-20] MEDS ORDERED: NEOMY/BACITRAC ZN/POLY OINT 15 GM TP PRN (15:00)
[2017-10-20] MEDS ORDERED: SUCCINYLCHOLINE CHLORIDE INJ 200 MG/10 ML VIAL ONE (15:35)
--- NOTE | 2017-10-20 16:14 | OPERATIVE REPORT E ---
Operative Report NAME: CITLALLI BORREGO : 1995 AGE: 21Y DATE OF SURGERY: 10/20/2017 ROOM: 212 PREOPERATIVE DIAGNOSES: 1. Left breast abscess. 2. Hidradenitis suppurativa, recurrent, right axilla. POSTOPERATIVE DIAGNOSES: 1. Left breast abscess. 2. Hidradenitis suppurativa, recurrent, right axilla. PROCEDURE: 1. Incision and drainage of left breast abscess. 2. Full-thickness debridement right axilla skin measuring 8 x 12 cm, down to muscle fascia. SURGEON: MARYAM RODRIGUEZ M.D. CHIEF NURSE ANESTHETIST: None. ANESTHESIA: General plus 30 mL of 0.5% Marcaine with epinephrine. COMPLICATIONS: None. BLOOD LOSS: 20 mL. FLUIDS: 5 mL. INDICATIONS AND FINDINGS: This is a young, 21-year-old female who presented to the emergency room with a complaint of draining site from the left breast near the areola as well as recurrent drainage from the right axilla. On physical exam, she had an obvious left breast abscess located about 4 o'clock in the areola skin area as well as an area of drainage, swelling, and scarring located in the right axilla, which represents a recurrent suppurative hidradenitis. A decision was made to send the patient to surgery to undergo drainage of the left breast abscess for treatment of the recurrent chronic suppurative left axilla hidradenitis. DESCRIPTION OF PROCEDURE: It was done in the operating room. The patient was placed in a supine position. General anesthesia induced via endotracheal intubation. The left breast and the right chest, axilla, and the upper extremity were prepped and draped in the usual fashion. The left breast abscess was approached first by making a curving incision about 3 cm long at 4 o'clock at the edge between the skin and the areola. This was deepened with a knife and with Bovie. A small subcutaneous abscess cavity was identified. Most of the purulent collection had already drained spontaneously through an opening in the skin. However, cultures were obtained. The area was then inspected with finger and a single cavity was then obtained by finger debridement. Following this, the area was irrigated with normal saline. Local bleeders were cauterized. The area was packed with 0.25-inch packing strip together with triple-antibiotic ointment. Sterile dressings and tape were applied. The right axilla was then approached by using a surgical marker to outline the area of the skin of the axilla which was affected by chronic inflammation and infection secondary to the suppurative hidradenitis. This was done with 2 curvilinear incisions, starting at the level of the insertion of the pectoralis major muscle anteriorly and ending posteriorly by the insertion of the latissimus dorsi muscle. The incision was then performed with #15 blade and deepened with Bovie to remove an island of chronically inflamed skin and subcutaneous tissue containing the hair follicles. After this was accomplished, the specimen was removed and sent to pathology. The local bleeders were cauterized or controlled with [id number] 3-0 Vicryl sutures. The area was irrigated until clear. Local bleeders were again cauterized. The area was covered with a large amount of triple-antibiotic ointment, 4 x 4's, ABD's, Kerlix roll, and Renato. The patient tolerated the procedure well, extubated and transferred to the recovery room in satisfactory condition. Both surgery areas were infiltrated with 0.5% Marcaine with epinephrine. DICTATING PHYSICIAN: MARYAM RODRIGUEZ M.D. [id number] PHY#: [id number] ID: [id number] JOB#: [id number] ACCT: [id number] cc:MARYAM RODRIGUEZ M.D. > MTDD
[2017-10-20] MEDS: KETOROLAC TROMETHAMINE INJ/PF 30 MG/1 ML SDV IV SCH ×2 (17:09→23:08)
[2017-10-20] MEDS: FENTANYL CITRATE INJ/PF 100 MCG/2 ML AMPUL IV PRN ×2 (17:09→19:52)
[2017-10-20] MEDS: PIPERACILLIN SODIUM/TAZOBACTAM 3.375 GM in NORMAL SALINE 100 ML IV SCH ×2 (17:10→23:08)
[2017-10-20] MEDS: FAMOTIDINE INJ/PF 20 MG/2 ML SDV IV SCH (22:21)
[2017-10-21] MEDS: FENTANYL CITRATE INJ/PF 100 MCG/2 ML AMPUL IV PRN ×5 (00:25→21:58)
[2017-10-21] MEDS: KETOROLAC TROMETHAMINE INJ/PF 30 MG/1 ML SDV IV SCH ×4 (05:09→23:22)
[2017-10-21] MEDS: PIPERACILLIN SODIUM/TAZOBACTAM 3.375 GM in NORMAL SALINE 100 ML IV SCH ×4 (05:09→23:22)
[2017-10-21 07:27] LABS: ABSOLUTE MONOCYTES (AUTO) 0.6 10^3/uL (0.1-1.4); ABSOLUTE NEUT (AUTO) 10.2 10^3/uL (1.7-8.2); BASOPHILS % (AUTO) 0.3 % (0-2); EOSINOPHILS % (AUTO) 0.2 % (0-6); HEMATOCRIT 34.2 % (36.0-47.0); LYMPHOCYTES % (AUTO) 15.5 % (13-45); MEAN CORPUSCULAR HEMOGLOBIN 28.7 pg (27.0-33.4); MEAN CORPUSCULAR HGB CONC 32.7 g/dL (32.0-36.0); MEAN CORPUSCULAR VOLUME 88 fl (80-97); MONOCYTES % (AUTO) 4.6 % (3-13); PLATELET COUNT 214 10^3/uL (150-450); RED BLOOD COUNT 3.89 10^6/uL (3.72-5.28); RED CELL DISTRIBUTION WIDTH 13.7 % (11.5-14.0); SEGMENTED NEUTROPHILS % (AUTO) 79.4 % (42-78); TOTAL CELLS COUNTED % (AUTO) 100 %; WHITE BLOOD COUNT 12.8 10^3/uL (4.0-10.5)
[2017-10-21 07:38] LABS: HEMOGLOBIN 11.2 g/dL (12.0-15.5)
[2017-10-21 07:48] LABS: ANION GAP 10 (5-19); BLOOD UREA NITROGEN 7 mg/dL (7-20); CALCIUM 9.2 mg/dL (8.4-10.2); CARBON DIOXIDE 21 mmol/L (22-30); CHLORIDE 110 mmol/L (98-107); GLUCOSE 116 mg/dL (75-110); POTASSIUM 4.3 mmol/L (3.6-5.0); SODIUM 140.9 mmol/L (137-145)
[2017-10-21] MEDS: FAMOTIDINE INJ/PF 20 MG/2 ML SDV IV SCH ×2 (09:02→21:58)
[2017-10-21] MEDS: VANCOMYCIN HCL 1,250 MG in DEXTROSE 5%-WATER 250 ML IV SCH ×2 (11:16→19:53)
[2017-10-21] MEDS ORDERED: DOCUSATE SODIUM 100 MG CAPSULE PO SCH (18:00)
--- NOTE | 2017-10-21 19:11 | PDOC PROGRESS REPORT ---
Subjective Progress Note for:: 10/21/17 Reason For Visit: ABSCESS OF BREAST AXILLARY HIDRADENITIS Patient doing well, off, shower, took dressings out of left breast and right axilla. Ambulating. Pain adequately managed Physical Exam Vital Signs: Temp Pulse Resp BP Pulse Ox 98.2 F 67 16 127/76 H 100 10/21/17 15:35 10/21/17 15:35 10/21/17 15:35 10/21/17 15:35 10/21/17 16:40 Pulse Oximeter Continuous Start: 10/20/17 14: 45 Freq: RTQ4 Status: Active Document 10/21/17 16:40 [facility] (Rec: 10/21/17 18:00 [facility] [email or web address]) Pulse Oximetry Assessment Oxygen Saturation (92-100) 100 Oxygen Delivery Method Room Air Fraction of Inspired Oxygen (FIO2) 21 Equipment Usage Equipment in Use Continuous SpO2 Machine # [id number] Intake & Output 10/20/17 10/21/17 10/22/17 06:59 06:59 06:59 Intake Total 2400 500 Output Total 20 Balance 2380 500 General appearance: PRESENT: no acute distress Extremities exam: PRESENT: other - Earlier today right axillary left breast dressings removed, wounds clean with minimal drainage, exposed subcutaneous tissue without residual active infection Results Laboratory Results: 10/21/17 06:54 10/21/17 06:54 10/21/17 10/21/17 06:54 06:54 WBC 12.8 H RBC 3.89 Hgb 11.2 L D Hct 34.2 L MCV 88 MCH 28.7 MCHC 32.7 RDW 13.7 Plt Count 214 Seg Neutrophils % 79.4 H Lymphocytes % 15.5 Monocytes % 4.6 Eosinophils % 0.2 Basophils % 0.3 Absolute Neutrophils 10.2 H Absolute Lymphocytes 2.0 Absolute Monocytes 0.6 Absolute Eosinophils 0.0 Absolute Basophils 0.0 Sodium 140.9 Potassium 4.3 Chloride 110 H Carbon Dioxide 21 L Anion Gap 10 BUN 7 Creatinine 0.61 Est GFR ( Amer) > 60 Est GFR (Non-Af Amer) > 60 Glucose 116 H Calcium 9.2 Assessment & Plan - Diagnosis (1) Axillary hidradenitis suppurativa Is this a current diagnosis for this admission?: Yes Plan: Patient is postoperative day 1 status post vigorous debridement right axilla, and left breast tissue infection in morbidly obese Afro-Nepalese female with chronic hidradenitis suppurativa Recommendations: 1. Continue empiric antibiotic therapy including vancomycin and Zosyn; patient growing gram-negative rods. 2. Continue local wound care, dressing changes in the shower tomorrow 3. Anticipate discharge home in the next 24-36 hours pending ongoing clinical improvement.
[2017-10-22] MEDS: NORMAL SALINE 1000 ML 1,000 ML IV PRN (01:54)
[2017-10-22] MEDS: FENTANYL CITRATE INJ/PF 100 MCG/2 ML AMPUL IV PRN ×2 (01:57→10:53)
[2017-10-22] MEDS: VANCOMYCIN HCL 1,250 MG in DEXTROSE 5%-WATER 250 ML IV SCH (02:00)
[2017-10-22] MEDS: KETOROLAC TROMETHAMINE INJ/PF 30 MG/1 ML SDV IV SCH ×2 (06:07→12:12)
[2017-10-22] MEDS: PIPERACILLIN SODIUM/TAZOBACTAM 3.375 GM in NORMAL SALINE 100 ML IV SCH ×2 (06:08→12:15)
[2017-10-22] MEDS ORDERED: DOCUSATE SODIUM 100 MG CAPSULE PO SCH (10:00)
[2017-10-22] MEDS: FAMOTIDINE INJ/PF 20 MG/2 ML SDV IV SCH (10:53)
[2017-10-22 11:13] LABS: VANCOMYCIN,TROUGH 10.6 ug/mL (5.0-20.0)
--- NOTE | 2017-10-22 11:52 | PDOC PROGRESS REPORT ---
Subjective Progress Note for:: 10/22/17 Subjective:: No c/o Reason For Visit: ABSCESS OF BREAST AXILLARY HIDRADENITIS Physical Exam Vital Signs: Temp Pulse Resp BP Pulse Ox 98.2 F 62 16 98/59 L 100 10/22/17 07:58 10/22/17 07:58 10/22/17 07:58 10/22/17 07:58 10/22/17 09:15 Pulse Oximeter Continuous Start: 10/20/17 14: 45 Freq: RTQ4 Status: Active Document 10/22/17 09:15 [facility] [place]Rec: 10/22/17 09:16 [facility] [place] [email or web address][place] Pulse Oximetry Assessment Oxygen Saturation (92-100) 100 Oxygen Delivery Method Room Air Fraction of Inspired Oxygen (FIO2) 21 Equipment Usage Equipment in Use Continuous SpO2 Machine # N 6 Additional RT Notes 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 Intake & Output 10/21/17 10/22/17 10/23/17 06:59 06:59 06:59 Intake Total 2400 2600 Output Total 20 Balance 2380 2600 Skin exam: PRESENT: other - Left breast = surgical wound clean, no odor, no drainage, no welling or erythema Right axilla = wound clean granulating Results Laboratory Results: 10/21/17 06:54 10/21/17 06:54 Assessment & Plan - Diagnosis (1) Breast abscess of female Is this a current diagnosis for this admission?: Yes (2) Axillary hidradenitis suppurativa Is this a current diagnosis for this admission?: Yes - Plan Summary Plan Summary: A/ POD #2 after I&D left breast abscess and excision of right axilla recurrent chronic suppurative hydroadenitis VSS, AF PE shows a well healing left breast wound w/o cellulitits and clean right axilla surgical wound Culture from left breast abscess is significant for Proteus P/ Home today F/u in the General Surgery Clinic w/ PA Archana Cutler next week Left breast = BID pack lightly with a 2-3 inch long 1/4" packing strip, cover with dry 4x4 Right axilla = BID wet-to-dry dressing change [id number], apply dry 4x4 on top Avoid tape to skin by wearing a sport bra or tight Spandex shirt Augmentin 875 mg po BID x 5 days Tylenol 325 mg by mouth as needed for pain (read box instructions) Can shower immediately, avoid water jet to wounds Bathe only when wounds are closed and no dressings are required anymore
[2017-10-22 15:09] VITALS: BP 130/81
--- NOTE | 2017-10-22 17:14 | DISCHARGE SUMMARY E ---
Discharge Summary NAME: CITLALLI BORREGO : 1995 AGE: 21Y ADMITTED: 10/20/2017 DISCHARGED: 10/22/2017 FINAL DIAGNOSES: 1. Left breast abscess. 2. Right axilla recurrent chronic suppurative hidradenitis. PROCEDURE: On 10/20, the patient underwent: 1. Left breast abscess incision and drainage. 2. Excision of right axillary chronic recurrent suppurative hidradenitis. COMPLICATIONS: None. HOSPITAL COURSE: The patient is a 21-year-old female who presented to the emergency room on 10/20 with left breast swelling, pain, drainage due to an obvious abscess. In addition, she presented with drainage from the right axilla due to chronic recurrent suppurative hidradenitis. The patient was taken to surgery on the same day. She underwent incision and drainage of the left breast abscess and complete excision of the skin of the right axilla containing the recurrent chronic suppurative hidradenitis inflammation. The procedures were well tolerated. The patient was transferred to the floor. Postop course was unremarkable. She was kept on vancomycin and Zosyn antibiotics. On the day of discharge, the patient has no complaints. She remained afebrile and her vitals signs were stable. White blood cell count was 12.8 the day before the discharge. PHYSICAL EXAMINATION: On physical exam, the left breast abscess area was soft with the wound clean and no drainage and no odor. The right axilla surgical site was clean, granulating without evidence of drainage, odor, or inflammation. DISCHARGE ORDERS: The patient was discharged home on 10/22/2017. She was given a followup appointment in the surgery clinic with the Archana RAMESH, in about a week. She was given instructions to apply the triple-antibiotic ointment to the right axilla wound on the left breast abscess site twice a day for five days, and top cover it with dry sponges. After five days, she was instructed to discontinue the use of the triple-antibiotic ointment and to apply a small length of packing strip into the left breast abscess and normal saline moistened wet-to-dry dressing change to the right axillary wound. She was given Augmentin 875 mg p.o. b.i.d. for 5 days, Tylenol as needed for pain. The patient was instructed to shower only and not to let the water directly to the wounds. Bathe in 3-4 weeks or when all wounds are completely closed. She was instructed to resume activity as tolerated with limiting the activity of the right lower extremity, and diet as tolerated. DICTATING PHYSICIAN: MARYAM RODRIGUEZ M.D. [id number] PHY#: [id number] ID: [id number] JOB#: [id number] ACCT: [id number] cc:Malinda BERTRAND MD, M.D. > MTDD
== END 2017-10-22 15:27 | disposition home or self-care (01) | DRG 600 ==
LOC: ER 22:45 → OROUT 10-20 09:58 → EEVIPCON 10-20 13:00 → 2N 10-20 13:00
PROVIDERS: ADMIT Surgery; ATTEND Surgery
PROC: 0XB40ZX Excision of Right Axilla, Open Approach, Diagnostic (ICD-10-PCS; 2017-10-20)
PROC: 0H9U0ZZ Drainage of Left Breast, Open Approach (ICD-10-PCS; principal; 2017-10-20 12:00)
DX: N61.1 Abscess of the breast and nipple (principal); L02.411 Cutaneous abscess of right axilla; E66.01 Morbid (severe) obesity due to excess calories; F17.200 Nicotine dependence, unspecified, uncomplicated; B96.4 Proteus (mirabilis) (morganii) as the cause of diseases classified elsewhere; L73.2 Hidradenitis suppurativa; Z82.49 Family history of ischemic heart disease and other diseases of the circulatory system
CPT/HCPCS: 1610; 36415; 76642; 80048; 80202; 81025; 85025; 87070; 87075; 87077; 87186; 87205; 88304; 94762; 96361; 96365; 96367; 96375; 99285; A6266; J0131; J0330; J1100; J1885; J2250; J2405; J2543; J2704; J3010; J3370; J3490; J7030; J7060; S0028

== ENCOUNTER 2017-11-17 19:27 | Emergency (ER) | payer SELFPAY ==
[2017-11-17 19:45] VITALS: BP 127/77
--- NOTE | 2017-11-17 20:13 | ER Document Report ---
ED General - General Chief Complaint: wound check Stated Complaint: ANGELICA EVANS Time Seen by Provider: 11/17/17 20:10 TRAVEL OUTSIDE OF THE [place] IN LAST 30 DAYS: No - HPI Notes: 21-year-old female who on the of this past month had hydroadenitis suppurativa surgery who presents with persistent pain. Patient states the pain is never been manageable despite being discharged a month ago. She seen her primary care doctor and surgeon in follow-up. She states she is taking Toradol but is not helping, she takes ibuprofen it does not help either. She is not using Tylenol and synergistic fashion. Drainage is improved, wound is healing. Burning constant pain every day. Unrelenting. Gradual onset. Modifying - Related Data Allergies/Adverse Reactions: No Known Allergies Allergy (Verified 08/01/17 22:33) Past Medical History - Social History Smoking Status: Never Smoker Frequency of alcohol use: None Family History: CAD, Hyperlipidemia, Hypertension Patient has suicidal ideation: No Patient has homicidal ideation: No - Medical History Medical History: Other - Recent hidradenitis of vertebral surgery Pulmonary Medical History: Reports: Hx Asthma, Hx Bronchitis Renal/ Medical History: Denies: Hx Peritoneal Dialysis Psychiatric Medical History: Reports: Hx Anxiety, Hx Bipolar Disorder Past Surgical History: Reports: Hx Breast Surgery - Abscess surgical drainage, Other - drainage of right and left breast axillart abscesses and left breast absces Review of Systems - Review of Systems Notes: Review of systems as in history of present illness, otherwise no significant headache, chest pain, abdominal pain. Physical Exam - Vital signs Vitals: Temp Pulse Resp BP Pulse Ox 98.9 F 82 18 127/77 H 99 11/17/17 19:42 11/17/17 19:42 11/17/17 19:42 11/17/17 19:42 11/17/17 19:42 - Notes Notes: General: Well devloped, no acute distress. HEENT: Normocephalic, atraumatic. Pupils equal round reactive to light. Mucosa moist. No JVD. Chest: No trauma, normal excursion. Respiratory: Good air exchange, normal excursion. Cardiac: Regular rhythm Abdomen: Soft, benign. Nondistended. Back: No asymmetry or gross abnormality. Motor: Grossly normal power and tone. Neurologic: Alert, nonfocal. Vascular: Well perfused Skin: No petechiae or purpura. Right axillary region shows a well-healing granulating open wound in the axilla without any purulence or cellulitis Course - Re-evaluation Re-evalutation: 11/17/17 20:27 Well-appearing female persistent postoperative pain, no evidence of wound complication. I had an extended discussion with her with regarding 2 options. Of note I also indicated that I could not refill her antianxiety medicines that would be after her primary care doctor. I am going to give her a prescription for naproxen which may have some benefit, I have encouraged her to utilize concomitant Tylenol for synergistic effect. She received a single tramadol in the ED, however, I have indicated that I am uncomfortable prescribing outpatient opiates for her persistent postoperative pain and I recommended that she see her primary care doctor and/or surgeon. - Vital Signs Vital signs: Temp Pulse Resp BP Pulse Ox 98.9 F 82 18 127/77 H 99 11/17/17 19:42 11/17/17 19:42 11/17/17 19:42 11/17/17 19:42 11/17/17 19:42 Discharge - Discharge Clinical Impression: Pain Condition: Good Disposition: HOME, SELF-CARE Instructions: Pain Management Additional Instructions: Contact your surgeon and primary care doctor in the morning. Prescriptions: Naproxen 500 mg PO Q12 PRN #12 tablet PRN Reason:
[2017-11-17] MEDS ORDERED: TRAMADOL HCL 50 MG TABLET PO ONE (20:14)
== END 2017-11-17 20:22 | disposition home or self-care (01) ==
LOC: EEVIPCON 19:27 → ER 19:27
DX: R52 Pain, unspecified (principal); L73.2 Hidradenitis suppurativa; Z98.890 Other specified postprocedural states; J45.909 Unspecified asthma, uncomplicated
CPT/HCPCS: 99282

== ENCOUNTER 2017-12-02 19:59 | Emergency (ER) | payer SELFPAY ==
--- NOTE | 2017-12-02 21:43 | RADIOLOGY REPORT (SQ) ---
EXAM DESCRIPTION: CHEST 2 VIEWS COMPLETED DATE/TIME: 12/02/2017 9:32 pm REASON FOR STUDY: CP COMPARISON: 08/02/2017 EXAM PARAMETERS: NUMBER OF VIEWS: two views TECHNIQUE: Digital Frontal and Lateral radiographic views of the chest acquired. RADIATION DOSE: NA LIMITATIONS: none FINDINGS: LUNGS AND PLEURA: No opacities, masses or pneumothorax. No pleural effusion. MEDIASTINUM AND HILAR STRUCTURES: No masses or contour abnormalities. HEART AND VASCULAR STRUCTURES: Heart normal size. No evidence for failure. BONES: No acute findings. HARDWARE: None in the chest. OTHER: No other significant finding. IMPRESSION: NO ACUTE RADIOGRAPHIC FINDING IN THE CHEST. TECHNICAL DOCUMENTATION: JOB ID: [id number] [email or web address]- All Rights Reserved Reading location - IP/workstation name: [email or web address]
[2017-12-02] MEDS ORDERED: KETOROLAC TROMETHAMINE INJ/PF 30 MG/1 ML SDV IM ONE (22:02)
--- NOTE | 2017-12-02 22:07 | ER Document Report ---
ED General - General Chief Complaint: Abscess Stated Complaint: ABSCESS Time Seen by Provider: 12/02/17 20:45 Mode of Arrival: Ambulatory Information source: Patient TRAVEL OUTSIDE OF THE [place] IN LAST 30 DAYS: No - HPI Patient complains to provider of: BILATERAL AXILLARY PAIN, CHEST PAIN Notes: Patient is here with complaints of bilateral axillary pain and chest pain. Patient has a history of hidradenitis had surgery on her right axilla over a month ago. She been seen multiple times in the ER for continued pain in the right axilla. She denies any new swelling or drainage from this area, she states that she continues to have pain despite taking naproxen, ibuprofen, Toradol, Tylenol. She now states that her left axilla is hurting and has a small bump to the lateral aspect. No drainage. No fever. She also reports that she has been having some sharp chest pain for the last 2 days. States the pain comes and goes, it sharp in nature and seems to be worse when she takes a deep breath when she is having it. She denies any significant shortness of breath at this time. No hormone use. No extensive long trips or immobilization. No history of cancer. No history of DVT or PE. She is not having the chest pain currently. No fever. No cough. No leg swelling. No other complaints at this time. - Related Data Allergies/Adverse Reactions: No Known Allergies Allergy (Verified 08/01/17 22:33) Past Medical History - Social History Smoking Status: Former Smoker Chew tobacco use (# tins/day): No Frequency of alcohol use: None Drug Abuse: None Family History: CAD, Hyperlipidemia, Hypertension Patient has suicidal ideation: No Patient has homicidal ideation: No Pulmonary Medical History: Reports: Hx Asthma, Hx Bronchitis Renal/ Medical History: Denies: Hx Peritoneal Dialysis Psychiatric Medical History: Reports: Hx Anxiety, Hx Bipolar Disorder, Hx Depression - Anxiety Past Surgical History: Reports: Hx Breast Surgery - Abscess surgical drainage, Other - drainage of right and left breast axillart abscesses and left breast absces Review of Systems - Review of Systems -: Yes All other systems reviewed and negative Physical Exam - Vital signs Vitals: Temp Pulse Resp BP Pulse Ox 98.9 F 89 32 H 120/63 99 12/02/17 20:16 12/02/17 20:16 12/02/17 20:16 12/02/17 20:16 12/02/17 20:16 - Notes Notes: GENERAL: alert, cooperative, nontoxic, no distress. HEAD: normocephalic, atraumatic EYES: conjunctiva pink without discharge, no external redness or swelling. EARS: no external swelling, no external redness NOSE: atraumatic, no external swelling MOUTH/THROAT: mucous membranes moist and pink NECK: soft, supple, full range of motion, no meningismus. CHEST: no distress, lungs clear and equal throughout. No wheezing, rales, rhonchi. CARDIAC: regular rate and rhythm, no murmur, normal capillary refill, normal pulses. BACK: full range of motion, no CVA tenderness. EXTREMITIES: full range of motion of all extremities. No redness, no swelling. NEURO: alert and oriented 3, no focal deficits, full range of motion of all extremities. PYSCH: appropriate mood, affect. Patient is cooperative. SKIN: pink, warm, dry, no rash. Right axilla with healing postsurgical incision. Evidence of prior dehiscence with granulation tissue noted. There is no surrounding redness or fluctuance. No drainage. Patient has a small abscess to the left axilla. No surrounding redness or drainage. Minimal tenderness to palpation. Course - Re-evaluation Re-evalutation: 12/02/17 22:05 Patient is nontoxic appearing with stable vitals. She is here with multiple complaints. Patient has a history of rhinitis and had surgery on her right axilla over a month ago. She continues to have chronic pain in this arm. There is no signs of infection at this time. She is neurovascularly intact. There is no redness or swelling. She also notes that she has a small abscess starting on the left axilla. She has a history of hidradenitis in this axilla as well, and she is scheduled to have surgery on this side. No fevers. She is noted to have a small abscess. I offered I&D versus warm compresses and antibiotics, the patient states that she would prefer to do antibiotics and warm compresses. He also complained of some intermittent sharp chest pain. She has no ACS risk factors. Pain is very atypical for ACS. She has no PE risk factors, PE is very unlikely, she is PERC rule negative for PE. She has well's criteria negative for PE. No further evaluation is required at this time. She has a normal chest x-ray as well as normal EKG. Patient was given a shot of Toradol here in the emergency department. Patient is requesting something for her chronic pain in her right axilla. I explained just that she was explained on her last ER visit that we cannot prescribe narcotic type medications for chronic postoperative pain. She states that she missed her last postoperative surgical appointment. I instructed her that it is very important for him to keep the appointments for recheck with her surgeon. Patient will be given a shot of Toradol in the emergency department. We can try Voltaren as well as Tylenol. She is instructed to not take Naprosyn, ibuprofen, Toradol she is taking the Voltaren. She is instructed to follow-up with her surgeon at the next available appointment. Follow-up sooner for worsening pain, fever, redness, drainage, any further concerns. The patient's emergency department workup and current diagnosis were explained to the patient and or family. Follow-up instructions were provided. Medications if prescribed were discussed. Instructions for when to return to the emergency department including specific worrisome symptoms were discussed with the patient and/or family. - Vital Signs Vital signs: Temp Pulse Resp BP Pulse Ox 98.9 F 89 32 H 120/63 99 12/02/17 20:16 12/02/17 20:16 12/02/17 20:16 12/02/17 20:16 12/02/17 20:16 - Diagnostic Test Radiology reviewed: Image reviewed, Reports reviewed - Chest x-ray negative - EKG Interpretation by Me EKG shows normal: Sinus rhythm, [place], Intervals, QRS Complexes, ST-T Waves Rate: Normal Rhythm: NSR Discharge - Discharge Clinical Impression: Post-op pain, Hidradenitis axillaris Chest pain Qualifiers: Chest pain type: unspecified Qualified Code(s): R07.9 - Chest pain, unspecified Condition: Stable Disposition: HOME, SELF-CARE Instructions: Abscess ([facility]), Chest Pain of Unclear Cause ([facility]), Chronic Pain Control ([facility]) Additional Instructions: Take medications as prescribed. Apply warm compresses to the left axilla. Follow-up with your surgeon at the next available appointment. Follow-up sooner for increasing pain, fever, redness, drainage, numbness, tingling, weakness, any further concerns. Do not take ibuprofen, Naprosyn, Toradol with the Voltaren given today. You may also take Tylenol as needed. Prescriptions: Diclofenac Sodium [Voltaren 50 Mg Tablet.] 50 mg PO BID #20 tablet. Sulfamethoxazole/Trimethoprim [Bactrim Ds Tablet] 1 each PO BID #20 tablet Forms: Smoking Cessation Education Referrals: EMILIA RAGLAND MD [Primary Care Provider] - Follow up as needed
[2017-12-02 22:23] VITALS: BP 118/73
--- NOTE | 2017-12-02 22:28 | EKG REPORT ---
SEVERITY:- NORMAL ECG - SINUS RHYTHM : Confirmed by: Juan Day 02-Dec-2017 22:26:55
== END 2017-12-02 22:24 | disposition home or self-care (01) ==
LOC: ER 19:59
DX: G89.18 Other acute postprocedural pain (principal); L73.2 Hidradenitis suppurativa; R07.9 Chest pain, unspecified
CPT/HCPCS: 93005; 99283; 96372; 71046; 93010; J1885